=== PATIENT | female | born 1985 | race Caucasian/White ===

== ENCOUNTER 2017-02-28 17:50 | Emergency (ER) | payer MEDICAID ==
[~2017-02-28] VITALS: Ht 172.7 cm; Wt 100.0 kg
[~2017-02-28 17:50] MED LIST: ALBU2.5I INH; ALBU6.7H INH; BENZ100 PO; IBUP800 PO; IPRA0.03; ZITH250T PO
[2017-02-28 18:37] VITALS: BP 120/71; PULSE 79; RESP 18; TEMP 98.5; O2SAT 96
--- NOTE | 2017-02-28 19:10 | PD ---
HPI Chief Complaint: General Weakness Time Seen by Provider: 19:01 Travel History International Travel<30 days: No Contact w/Intl Traveler<30days: No Traveled to known affect area: No History of Present Illness HPI This is a 31-year-old female who status post abdominoplasty 7 days prior in [place], who presents today with complaints of generalized weakness. The patient states that she was having pain in her incision site and took 2 Percocets without eating food this morning at 10 AM. She states since then she' s been nauseous and slightly dizzy. She denies any fevers, chills. She states that she does have a drain that we'll likely be removed in the next day or 2. There are no other complaints time my examination. PFSH Past Medical History Asthma: Yes Diabetes: Yes (GESTATIONAL) Diminished Hearing: No Past Surgical History Other Surgery: Yes (breast reduction) Social History Alcohol Use: No Tobacco Use: No Substance Use: No Allergies-Medications (Allergen,Severity, Reaction): Coded Allergies: No Known Allergies (Unverified , 08/13/16) Reported Meds & Prescriptions Reported Meds & Active Scripts Active Zofran Odt (Ondansetron Odt) 4 Mg Tab 4 Mg SL Q6HR PRN Reported Oxycodone-Acetaminophen 5-325 mg Tab 1 Tab PO Q4H PRN Ventolin Hfa 18 GM Inh (Albuterol Sulfate) 90 Mcg/Act Aer 2 Puff INH Q4-6H PRN Review of Systems Except as stated in HPI: all other systems reviewed are Neg General / Constitutional: No: Fever, Chills HENT: Positive: Lightheadedness, No: Headaches, Neck Pain Cardiovascular: No: Chest Pain or Discomfort, Palpitations Respiratory: No: Cough, Shortness of Breath Gastrointestinal: Positive: Nausea, Vomiting, Abdominal Pain (at incision site. Noted increased drainage or redness noted.) Genitourinary: No: Dysuria, Discharge Musculoskeletal: Positive: Weakness (mild generalized), No: Pain Neurologic: Positive: Weakness (mild generalized), No: Dizziness, Headache Physical Exam Narrative GENERAL: Well developed well-nourished female in no acute respiratory distress. SKIN: Focused skin assessment warm/dry. HEAD: Atraumatic. Normocephalic. EYES: No scleral icterus. No injection or drainage. ENT: No nasal bleeding or discharge. Mucous membranes pink and moist. NECK: Trachea midline. Supple. CARDIOVASCULAR: Regular rate and rhythm. No murmur appreciated. RESPIRATORY: No accessory muscle use. Clear to auscultation. Breath sounds equal bilaterally. GASTROINTESTINAL: Abdomen soft, non-tender, nondistended. On examination of the patient's incision, it appears clean and dry it is no evidence of cellulitis or drainage. She does have [address] There is minimal serosanguineous drainage noted in the bulbs. MUSCULOSKELETAL: No obvious deformities. No clubbing. No cyanosis. No edema. NEUROLOGICAL: Awake and alert. No obvious cranial nerve deficits. Motor grossly within normal limits. Normal speech. Data Data Last Documented VS Vital Signs Date Time Temp Pulse Resp B/P Pulse Ox O2 Delivery O2 Flow Rate FiO2 02/28/17 20:00 82 16 133/65 98 Room Air 02/28/17 18:37 98.5 Orders Complete Blood Count With Diff (02/28/17 19:01) Basic Metabolic Panel (Bmp) (02/28/17 19:01) Sodium Chlor 0.9% 1000 Ml Inj (Ns 1000 M (02/28/17 19:15) Labs Laboratory Tests Test 02/28/17 19:20 White Blood Count 9.8 TH/MM3 Red Blood Count 3.94 MIL/MM3 Hemoglobin 11.6 GM/DL Hematocrit 34.3 % Mean Corpuscular Volume 86.9 FL Mean Corpuscular Hemoglobin 29.3 PG Mean Corpuscular Hemoglobin 33.7 % Concent Red Cell Distribution Width 13.0 % Platelet Count 338 TH/MM3 Mean Platelet Volume 8.3 FL Neutrophils (%) (Auto) 70.7 % Lymphocytes (%) (Auto) 20.5 % Monocytes (%) (Auto) 6.6 % Eosinophils (%) (Auto) 1.6 % Basophils (%) (Auto) 0.6 % Neutrophils # (Auto) 7.0 TH/MM3 Lymphocytes # (Auto) 2.0 TH/MM3 Monocytes # (Auto) 0.6 TH/MM3 Eosinophils # (Auto) 0.2 TH/MM3 Basophils # (Auto) 0.1 TH/MM3 CBC Comment DIFF FINAL Differential Comment Sodium Level 140 MEQ/L Potassium Level 4.1 MEQ/L Chloride Level 105 MEQ/L Carbon Dioxide Level 31.2 MEQ/L Anion Gap 4 MEQ/L Blood Urea Nitrogen 10 MG/DL Creatinine 0.77 MG/DL Estimat Glomerular Filtration 89 ML/MIN Rate Random Glucose 91 MG/DL Calcium Level 8.8 MG/DL [facility] Medical Decision Making Medical Screen Exam Complete: Yes Emergency Medical Condition: Yes Differential Diagnosis Medication reaction versus electrolyte abnormality versus anemia Narrative Course 31-year-old female who status post abdominoplasty one week prior, presents today with complaints of generalized weakness with associated nausea and vomiting times one episode. The patient took 2 Percocets on at the stomach at 10 AM this morning. She knows this is likely a cause of this pitched any fevers , chills. There are no other complaints. The surgical site looks clean and dry and intact. There are 2 BELL drains. White count is within normal limits, elect her lites are within normal limits. I discussed with the patient that she needs to take these medications with food. She states she understands and will only take one at a time. She is instructed to return if she also any fevers, chills, drainage from her surgical site or any reason the concerns her. Diagnosis Primary Impression: Adverse reaction to anti-Parkinsonian drug Additional Impression: status post abdominoplasty one week prior. Additional Instructions: Be careful taking her pain medications. Please take with food. Return if fevers, chills, nausea vomiting, or any other reason the concerns her. Med/Other Pt SpecificInfo: Prescription(s) given Scripts Ondansetron Odt (Zofran Odt)4 Mg Tab4 Mg SL Q6HR PRN (Nausea/Vomiting) #30 TAB Ref 0 Prov:Dom Ramos MD 02/28/17 Disposition: 01 DISCHARGE HOME Condition: Stable Dom Ramos MD February 28, 2017 19:10
[2017-02-28] MEDS ORDERED: SODIUM CHLOR 0.9% 1000 ML INJ 1,000 ML IV ONE (19:15)
[2017-02-28 20:00] VITALS: BP 133/65; PULSE 82; RESP 16; O2SAT 98
[2017-02-28 20:01] LABS: BASOPHIL # 0.1 TH/MM3 (0-0.2); BASOPHIL % 0.6 % (0.0-2.0); EOSINOPHIL # 0.2 TH/MM3 (0-0.4); EOSINOPHIL % 1.6 % (0.0-4.0); HEMATOCRIT 34.3 % (35.0-46.0); HEMO FLAGS DIFF FINAL; LYMPH % 20.5 % (9.0-44.0); MEAN CELL VOLUME 86.9 FL (80.0-100.0); MEAN CORPUSCULAR HEMOGLOBIN 29.3 PG (27.0-34.0); MEAN CORPUSCULAR HGB CONC 33.7 % (32.0-36.0); MONO % 6.6 % (0.0-8.0); NEUT % 70.7 % (16.0-70.0); PLATELET COUNT 338 TH/MM3 (150-450); RED BLOOD COUNT 3.94 MIL/MM3 (4.00-5.30); WHITE BLOOD COUNT 9.8 TH/MM3 (4.0-11.0)
[2017-02-28] MEDS ORDERED: OXYC1TAB63 PO (20:06)
[2017-02-28] MEDS ORDERED: VENTAER INH (20:06)
[2017-02-28 20:18] LABS: BICARBONATE 31.2 MEQ/L (21.0-32.0); POTASSIUM 4.1 MEQ/L (3.5-5.1)
[2017-02-28] MEDS ORDERED: ZOFR4TAB3 SL (20:52)
[2017-02-28 21:41] VITALS: BP 130/76
== END 2017-02-28 21:30 | disposition home or self-care (01) ==
LOC: NEPE 17:50
DX: T50.995A Adverse effect of other drugs, medicaments and biological substances, initial encounter (principal); R42 Dizziness and giddiness; R53.1 Weakness; R11.2 Nausea with vomiting, unspecified
CPT/HCPCS: 80048; 85025; 96360; 99284; J7030